=== PATIENT | male | born 1960 | race Caucasian/White ===

== ENCOUNTER → 2018-08-11 11:34 | Outpatient (CLI) | payer OTHER, SELFPAY ==
--- NOTE | 2018-08-11 | DI.CT.S_ITS ---
PROCEDURE: CT CERVICAL SPINE WO CON INDICATIONS: Cervicalgia TECHNIQUE: Noncontrast 3 mm thick sections acquired from the skull base to the T4 level. Sagittal and coronal reformats were then constructed. For radiation dose reduction, the following was used: automated exposure control, adjustment of mA and/or kV according to patient size. COMPARISON: None. FINDINGS: Image quality: This examination is somewhat limited by quantum mottle artifact. Bones: No fractures or dislocations. Visualized superior ribs are intact. Mild degenerative changes are seen. No significant malalignment or perched facets can be seen. Soft tissues: Prevertebral soft tissues are normal in thickness. No paravertebral hematomas. No apical pneumothoraces. IMPRESSION: No significant abnormality is seen for age. Dictated by: Irvin Herrera M.D. on 08/11/2018 at 12:13 Approved by: Irvin Herrera M.D. on 08/11/2018 at 12:14
== END ==
PROVIDERS: Visit Provider Physical Medicine & Rehabilitation Pain Medicine
DX: M54.2 Cervicalgia (principal)
CPT/HCPCS: 72125

== ENCOUNTER → 2018-08-29 19:50 | Outpatient (CLI) | payer OTHER, SELFPAY ==
--- NOTE | 2018-08-29 | DI.MRI.S_ITS ---
PROCEDURE: MR CERVICAL SPINE WO CON INDICATIONS: CERVICAL SPINE PAIN TECHNIQUE: Noncontrast sagittal T1 spin echo and T2 fast spin echo, sagittal STIR, foraminal oblique sagittal T2 fast spin echo, and axial gradient echo or T2 fast spin echo through the cervical spine. COMPARISON: [facility], CT, CT CERVICAL SPINE WO CON, 08/11/2018, 11:43. [facility], CR, XR CERVICAL SPINE 6+ VIEWS, 07/31/2018, 9:14. FINDINGS: Image quality: Excellent. Alignment and Curvature: There is trace C3 on C4 and C4 on C5 retrolisthesis.. There is mild reversal of normal cervical spine curvature. Bone Marrow: Marrow demonstrates normal overall signal. Spinal Cord: Visualized spinal cord has normal size and signal. No cerebellar tonsillar herniation. Paraspinous Soft Tissues: No paravertebral masses. Prevertebral soft tissues are normal in thickness. C2-C3: Loss of disc signal. No central stenosis. No neural foraminal narrowing. No neural impingement. C3-C4: Loss of disc signal and mild loss of disc height. Mild, diffuse disc bulge and small central/left central disc protrusion. Moderate narrowing of the central canal. Mild bilateral uncovertebral joint hypertrophy. Moderate bilateral neural foraminal narrowing. No neural impingement. C4-C5: Loss of disc signal. Mild, diffuse disc bulge. Moderate central canal narrowing. Mild bilateral facet hypertrophy. Mild left uncovertebral joint hypertrophy. Moderate right and severe left neural foraminal narrowing with compression of the exiting left C5 nerve root. C5-C6: The loss of the signal. Mild, diffuse disc bulge. Mild to moderate narrowing of the central canal. Mild bilateral facet hypertrophy. Moderate right uncovertebral joint hypertrophy. Severe right and moderate left neural foraminal narrowing with compression of the exiting right C6 nerve root.. C6-C7: Loss of disc signal. Mild diffuse disc bulge. Small central disc protrusion. Mild to moderate narrowing of the central canal. Moderate bilateral neural foraminal narrowing. No neural impingement. C7-T1: Loss of disc signal. Mild, diffuse disc bulge. No central stenosis. No neural foraminal narrowing. No neural impingement. IMPRESSION: 1. Multilevel degenerative disc disease. 2. Multilevel facet arthropathy and uncovertebral joint hypertrophy. 3. Moderate C3-C4 and C4-C5 central canal narrowing. Mild to moderate C5-C6 and C6-C7 central canal narrowing. 4. Moderate right and severe left C4-C5 neuroforaminal narrowing. Severe right and moderate left C5-C6 neural foraminal narrowing. Moderate bilateral C3 on C4 and C6 on C7 neural foraminal narrowing. 5. Compression of the exiting left C5 nerve root and the exiting right C6 nerve root secondary to neuroforaminal narrowing. Please correlate with clinical data. Dictated by: Courtney Ly MD, PhD on 08/30/2018 at 16:45 Approved by: Courtney yL MD, PhD on 08/30/2018 at 16:54
== END ==
PROVIDERS: Family Provider Family Medicine; PCP Family Medicine; Visit Provider Physical Medicine & Rehabilitation Pain Medicine
DX: M50.31 Other cervical disc degeneration, high cervical region (principal); M48.02 Spinal stenosis, cervical region; M47.812 Spondylosis without myelopathy or radiculopathy, cervical region
CPT/HCPCS: 72141

== ENCOUNTER → 2020-08-07 13:41 | Outpatient (CLI) | payer OTHER, SELFPAY ==
[2020-08-07] MEDS: COVID-19 VACC #1, MRNA(MOD) 100 MCG/0.5 ML VIAL IM (13:50)
== END ==
PROVIDERS: Family Provider Family Medicine; PCP Family Medicine; Visit Provider Internal Medicine
DX: Z23 Encounter for immunization (principal)
CPT/HCPCS: 0011A; 91301

== ENCOUNTER → 2020-09-04 12:49 | Outpatient (CLI) | payer OTHER, SELFPAY ==
[2020-09-04] MEDS: COVID-19 VACC #2, MRNA(MOD) 100 MCG/0.5 ML VIAL IM (12:55)
== END ==
PROVIDERS: Family Provider Family Medicine; PCP Family Medicine; Visit Provider Internal Medicine
DX: Z23 Encounter for immunization (principal)
CPT/HCPCS: 0012A; 91301

== ENCOUNTER → 2024-01-31 10:14 | Outpatient (CLI) | payer OTHER, SELFPAY ==
--- NOTE | 2024-01-31 | DI.ECHO.S_ITS ---
[place] [facility]+ [facility] : : [address] : : [place] : : [id number] : : Phone: [phone] Echocardiogram Report + + :Name: LUCILA GRAY Study Date: 01/31/2024 Height: 75 in : :[facility] ReadingLocation: Weight: 215 lb : : Gender: Male BSA: 2.3 m2 : :: 1960 Age: 64 yrs BP: 145/95 mmHg: :Reason For Study: Paroxysmal atrial fibrillation : :Ordering Physician: WEI : :FAITH Performed By: Shari Guerrero : :Referring: FAITH CARVAJAL : + + Interpretation Summary The ejection fraction is estimated to be 60-65%. Diastolic function was not assessed. The right ventricle is normal in size and function. No significant valvular abnormalities. Pulmonary artery pressures cannot be estimated because of the lack of a measurable TR jet velocity but the IVC suggests a CVP of around 3 mmHg. There is a small pericardial effusion near the left atrium and left ventricle. Procedure: A two-dimensional transthoracic echocardiogram with color flow and Doppler was performed. The study quality was technically adequate. There is no prior echocardiogram noted for this patient. The patient was in a bradycardic rhythm during the exam. The heart rate ranged between 44-50 bpm during the study. Left Ventricle: The left ventricle is normal in size and wall thickness. The ejection fraction is estimated to be 60-65%. Diastolic function was not assessed. Right Ventricle: The right ventricle is normal in size and function. Atria: The left atrial size is normal. Right atrial size is normal. There is no Doppler evidence for an interatrial shunt. Membranous shunt suspected and ruled out. Thought to be a slice thickness artifact. Mitral Valve: The mitral valve leaflets appear mildly thickened, but open well. There is no mitral valve stenosis. There is trace mitral regurgitation. Aortic Valve: The aortic valve is trileaflet. The aortic valve opens well. There is no aortic valve stenosis. No aortic regurgitation is present. Tricuspid Valve: The tricuspid valve leaflets are thin and pliable. There is a trace or physiologic amount of tricuspid regurgitation. Pulmonary artery pressures cannot be estimated because of the lack of a measurable TR jet velocity but the IVC suggests a CVP of around 3 mmHg. Pulmonic Valve: The pulmonic valve leaflets are thin and pliable; valve motion is normal. There is mild pulmonic regurgitation. Great Vessels: The aortic root is normal size. The ascending aorta is normal in size. The aortic arch is normal in size. The pulmonary artery is normal size. The IVC is of normal diameter and collapses greater than 50% with a sniff. This suggests a low right atrial pressure of 3 mm Hg. Pericardium/ Pleura There is a small pericardial effusion near the left atrium and left ventricle. There is no pleural effusion. MMode/2D Measurements & Calculations LVIDd: 5.3 cm LVOT diam: 2.4 cm LVIDs: 3.4 cm Ao root diam: 3.5 cm FS: 35.9 % asc Aorta Diam: 3.4 cm EPSS: 0.35 cm Ao Arch Diam (Prox Trans): 3.1 cm IVSd: 0.91 cm LVPWd: 0.93 cm LV tabor. diameter/BSA (cm/m^2): 2.4 LV sys. diameter/BSA (cm/m^2): 1.5 LA A2 area: 19.7 cm2 RA long axis: 5.9 cm LA A4 area: 25.2 cm2 RA area: 26.0 cm2 LA length (vol): 6.6 cm RA vol: 97.4 ml LA vol: 63.6 ml RA : 43.0 ml/m2 LA vol index: 28.1 ml/m2 IVC diam: 2.1 cm TAPSE: 3.2 cm Doppler Measurements & Calculations Ao V2 max: 149.2 cm/sec LVOT Max Joo: 127.6 cm/sec Ao V2 mean: 97.5 cm/sec LV V1 max P.5 mmHg Ao max P.9 mmHg LV V1 VTI: 27.7 cm Ao mean P.4 mmHg JIM(I,D): 3.6 cm2 Ao V2 VTI: 33.7 cm JIM(V,D): 3.8 cm2 sev ratio: 0.82 JIM indexed to BSA (cm^2/m^2): 1.6 MV E max joo: 62.1 cm/sec TR max joo: 233.6 cm/sec MV A max joo: 60.1 cm/sec TR max P.0 mmHg MV E/A: 1.0 PA pr(Accel): -11.8 mmHg MV dec time: 0.33 sec SV(LVOT): 122.6 ml Reading Physician:09:17 PM
--- NOTE | 2024-01-31 18:39 | DI.NM.S_ITS ---
DATE OF SERVICE: 01/31/2024 NUCLEAR CARDIOLOGY MYOCARDIAL PERFUSION STUDY PROCEDURE: Exercise treadmill stress and rest myocardial perfusion imaging with gating to assess ejection fraction and regional wall motion. ORDERING PROVIDER: Nba Mensah MD. INDICATIONS: The patient is a 64-year-old male with arrhythmias. CARDIAC STRESS: The patient was able to exercise for 10 minutes 17 seconds on a standard David protocol suggesting very good exercise capacity with an LORRIE of -23%, achieving 12.8 METS. He had a normal heart rate and blood pressure response to exercise and had no chest discomfort. His resting ECG shows sinus rhythm with a right bundle branch block and left posterior fascicular block but normal ST segments, and occasional PVCs. With stress, there are no significant ST-segment shifts. His PVCs becomes slightly more frequent but without any complex ectopy. At 9 minutes 17 seconds of exercise at a heart rate of 147 bpm, 24.7 millicuries of technetium-99m Myoview was injected and he was imaged 15 minutes later using a gated SPECT acquisition protocol. Earlier in the day while at rest, he had been injected with 12.0 millicuries of technetium-99m Myoview and was imaged 15 minutes later, again using a gated SPECT acquisition protocol. FINDINGS: 1. Raw data. There is fairly good myocardial tracer uptake. The lung/heart ratio is normal at 0.34 with a normal TID ratio of 0.91. 2. Quantitated gated SPECT: Post-stress ejection fraction is estimated at 64% without any focal wall motion abnormality and specifically the inferior wall has normal contractility. The resting ejection fraction is estimated at 57% with mildly increased volumes with an end-diastolic volume of 138 mL. The right ventricular free wall has slightly increased tracer uptake which can be a sign of a right ventricular overload condition but is nonspecific. 3. Myocardial perfusion imaging: Post-stress supine images show a fairly normal myocardial perfusion pattern although with a subtle defect in the inferior wall, consistent with diaphragmatic attenuation, supported by its resolution on the prone images, revealing a more homogeneous perfusion pattern. There are no other perfusion defects. The resting images show a similar perfusion pattern without any significant improvement in the inferior defect. IMPRESSION: 1. Normal myocardial perfusion study for ischemia. 2. Mild, fixed proximal to mid inferior wall perfusion defect that resolves on prone imaging, consistent with diaphragmatic attenuation artifact. There is no compelling evidence for any myocardial ischemia or previous myocardial infarction. 3. Mild left ventricular enlargement with normal left ventricular systolic function without focal wall motion abnormality. There is mildly increased right ventricular free wall tracer uptake which can be a sign of a right ventricular overload condition but is nonspecific and requires clinical correlation. 4. Very good exercise capacity without angina or ECG evidence of ischemia. He has a baseline right bundle branch block and left posterior fascicular block and occasional PVCs which become slightly more frequent with stress but without any complex ventricular ectopy. Brendan Lee - MACI/buddy/[employer] doc#: [id number]/job#: [id number] dd: 01/31/2024 16:50:00 dt: 01/31/2024 17:07:00 DICTATING MD/COPIES TO: Dallin Mcdaniel MD; Nba Mensah MD COPIES MNE: SASKIA;
== END ==
PROVIDERS: Family Provider Family Medicine; PCP Family Medicine; Referring Provider Family Medicine; Visit Provider Family Medicine
DX: I48.0 Paroxysmal atrial fibrillation (principal); I37.1 Nonrheumatic pulmonary valve insufficiency; I31.39 Other pericardial effusion (noninflammatory)
CPT/HCPCS: 78452; 93017; 93306; A9502

== ENCOUNTER → 2024-11-30 15:18 | Outpatient (CLI) | payer OTHER, SELFPAY ==
--- NOTE | 2024-11-30 15:23 | DI.RAD.S_ITS ---
PROCEDURE: XR CERVICAL SPINE 2V OR 3V INDICATIONS: C-6 NECK PAIN TECHNIQUE: 3 view(s) of the cervical spine were acquired. COMPARISON: None. FINDINGS: Bones: Partial loss of cervical lordosis in the upper cervical region. There is mild C3 and C4 retrolisthesis. Para [id number] degenerative disc disease in the C3-C6 region. There is also probable bilateral facet arthropathy, more on the right. No focal osseous lesion seen. Soft tissues: No prevertebral soft tissue swelling. IMPRESSION: Degenerative changes, partial loss of cervical lordosis and mild spondylolisthesis. No focal osseous lesion seen. Dictated by: Baldomero Santa M.D. on 12/01/2024 at 20:48 Approved by: Baldomero Santa M.D. on 12/01/2024 at 20:50
== END ==
PROVIDERS: Family Provider Family Medicine; PCP Family Medicine; Referring Provider Family Medicine; Visit Provider Family Medicine
DX: M50.11 Cervical disc disorder with radiculopathy, high cervical region (principal); M47.22 Other spondylosis with radiculopathy, cervical region; M43.12 Spondylolisthesis, cervical region
CPT/HCPCS: 72040